=== PATIENT | male | born 1965 | race Caucasian/White ===

== ENCOUNTER 2017-08-04 11:29 | Emergency (ER) | payer SELFPAY ==
[2017-08-04 11:51] VITALS: BP 125/76; PULSE 94; TEMP 102.6; BMI 32.9
[2017-08-04] MEDS ORDERED: ACETAMINOPHEN 325 MG TABLET (FP) PO ONE (11:53)
--- NOTE | 2017-08-04 14:38 | PDOC ---
History of Present Illness - General Chief Complaint: Sore Throat Stated Complaint: THROAT PAIN Time Seen by Provider: 08/04/17 13:09 Past History - Past Medical History Allergies/Adverse Reactions: Allergies Allergy/AdvReac Type Severity Reaction Status Date / Time No Known Allergies Allergy Verified 08/04/17 11:51 Home Medications: Ambulatory Orders Ibuprofen 800 mg PO TID #30 tablet 08/04/17 Metformin HCl 500 mg PO BID #14 tablet 08/04/17 COPD: No Diabetes: Yes (NO MEDS X 1 WK, RAN OUT) - Surgical History Cholecystectomy: Yes - Suicide/Smoking/Psychosocial Hx Smoking History: Never smoked Hx Alcohol Use: No Drug/Substance Use Hx: No Substance Use Type: None *Physical Exam - Vital Signs Last Vital Signs Temp Pulse Resp BP Pulse Ox 102.6 F H 94 H 20 125/76 98 08/04/17 11:48 08/04/17 11:48 08/04/17 11:48 08/04/17 11:48 08/04/17 11:48 ED Treatment Course - ADDITIONAL ORDERS Additional order review: Laboratory Results 08/04/17 13:43 POC Glucometer [id number] 08/04/17 13:43 POC Glucometer [id number] - Medications Given in the ED: ED Medications Discontinued Medications Generic Name Dose Route Start Last Admin Trade Name Freq PRN Reason Stop Dose Admin Acetaminophen 650 mg 08/04/17 11:53 08/04/17 11:54 Tylenol - PO 08/04/17 11:54 650 mg NOW ONE Administration *DC/Admit/Observation/Transfer Diagnosis at time of Disposition: Upper respiratory disease - Discharge Dispostion Disposition: HOME Condition at time of disposition: Good Admit: No - Referrals Referrals: Bernard Mahoney MD [Staff Physician] - - Patient Instructions Printed Discharge Instructions: DI for Viral Upper Respiratory Infection -- Adult Additional Instructions: Your flu test today was negative. Your strep test today was negative. Your fevers are most likely due to an upper respiratory illness. This should get better on its own. Please take Tylenol or Motrin as needed for fevers and pain. Please drink plenty of fluids. Your metformin was refilled today. Please take one pill twice a day. Your given a referral for a primary care doctor. Please follow up with them within the week , so you can have her medications refilled Return to the emergency department if you've fevers get worse, if you have shortness of breath, worsening headaches, or any changes in your symptoms. Tu prueba de gripe hoy fue negativa. Tu prueba de estreptococo hoy fue negativa. Zaman fiebre es ms probable debido a mike enfermedad respiratoria superior. [place] debera mejorar por s mismo. [place] Tylenol o Motrin segn sea necesario para las fiebres y el dolor. Por favor ole muchos lquidos. Zaman metformina fue rellenada hoy. Por favor mckenna mike pastilla dos veces al da. Le dieron mike referencia para un mdico de atencin primaria. Por favor shiraz un seguimiento con ellos dentro de la semana, para que pueda volver a llenar elizabeth medicamentos Regrese al departamento de emergencia si tiene fiebre empeora, si tiene dificultad para respirar, empeoramiento de los reji de khoa o cualquier cambio en elizabeth sntomas. Print Language: NEPALI - Post Discharge Activity
== END 2017-08-04 15:01 | disposition home or self-care (01) ==
LOC: JERFT 11:29
DX: J06.9 Acute upper respiratory infection, unspecified (principal); B97.89 Other viral agents as the cause of diseases classified elsewhere; E11.9 Type 2 diabetes mellitus without complications; Z91.14 Patient's other noncompliance with medication regimen
CPT/HCPCS: 87070; 87430; 87804; 99281-25